=== PATIENT | male | born 1995 | race Hispanic/Latino ===

== ENCOUNTER → 2025-03-06 | Outpatient (REF) | payer OTHER ==
[~2025-03-06] MED LIST: IOPAMIDOL 370 MG/ML 100 ML INFUS..BTL INJ ONE; SODIUM CHLORIDE 0.9% 250ML 250 ML ONE
== END ==
LOC: CT 15:58
PROVIDERS: ATTEND Urology
DX: R31.21 Asymptomatic microscopic hematuria (principal)
CPT/HCPCS: 74178; J7050; Q9967